=== PATIENT | male | born 1960 | race Hispanic/Latino ===

== ENCOUNTER 2021-02-10 17:59 | Emergency (ER) | payer OTHER, SELFPAY | END 2021-02-10 19:01 | disposition home or self-care (01) | LOC: CSHERS 17:59 | DX: S20.211A Contusion of right front wall of thorax, initial encounter (principal); W01.198A Fall on same level from slipping, tripping and stumbling with subsequent striking against other object, initial encounter; F17.210 Nicotine dependence, cigarettes, uncomplicated | CPT/HCPCS: 71045; 93005 ==

== ENCOUNTER 2023-01-11 13:11 | Outpatient (CLI) | payer BC | END 2023-01-11 13:12 | disposition home or self-care (01) | LOC: CSHRAD 13:11 | PROVIDERS: ATTEND Physician Assistant Medical | DX: S67.10XA Crushing injury of unspecified finger(s), initial encounter (principal); S68.121A Partial traumatic metacarpophalangeal amputation of left index finger, initial encounter ==